=== PATIENT | male | born 1965 | race Hispanic/Latino ===

== ENCOUNTER 2017-05-21 14:18 | Emergency (ER) | payer MEDICARE ==
[2017-05-21 14:45] LABS: Basophils # (Auto) 0.1 K/mm3 (0.0-0.1); Basophils % (Auto) 0.7 % (0.0-1.8); Eosinophils % (Auto) 0.6 % (0.0-4.3); Hematocrit 49.4 % (35.5-45.6); Hemoglobin 16.7 gm/dl (11.8-15.2); Lymphocytes # (Auto) 3.3 K/mm3 (1.2-5.4); Lymphocytes % (Auto) 45.5 % (13.4-35.0); Mean Corpuscular HGB Conc 34 % (32-34); Mean Corpuscular Hemoglobin 32 pg (28-32); Mean Corpuscular Volume 94 fl (84-94); Monocytes # (Auto) 0.4 K/mm3 (0.0-0.8); Monocytes % (Auto) 4.9 % (0.0-7.3); Platelet Count 295 K/mm3 (140-440); Red Blood Count 5.24 M/mm3 (3.65-5.03); Red Cell Distribution Width 14.5 % (13.2-15.2)
[2017-05-21 15:09] LABS: BUN/Creatinine Ratio 4; Blood Urea Nitrogen 3 mg/dL (9-20); Calcium 9.8 mg/dL (8.4-10.2); Hemolysis Index 13
--- NOTE | 2017-05-21 15:42 | Emergency Department Report ---
ED Psych HPI - General Chief Complaint: Psych Stated Complaint: MENTAL HEALTH Time Seen by Provider: 05/21/17 14:47 Source: patient Mode of arrival: Ambulatory - History of Present Illness Initial Comments: Patient sent over by his regular doctor on a 1013 for evaluation of hearing voices telling him to harm himself and others patient is in process of getting medically cleared for psych placement. He presents awake alert oriented 3 denies ingestions has good airway complaints except a little bit of heartburn denied chest pain no headache no stiff neck no focal neural complaints chest pain no abdominal pain no fever MD Complaint: suicidal ideation, feels depressed -: unknown Associated Psychiatric Symptoms: suicidal ideation, homicidal ideation, racing thoughts, auditory hallucinations Quality: intermittent Treatments Prior to Arrival: placed on mental he - Related Data Allergies Allergy/AdvReac Type Severity Reaction Status Date / Time No Known Allergies Allergy Unverified 05/21/17 14:29 ED Review of Systems ROS: Stated complaint: MENTAL HEALTH Other details as noted in HPI Comment: All other systems reviewed and negative Constitutional: denies: diaphoresis, fever, malaise Eyes: denies: eye discharge, vision change ENT: denies: dental pain, hearing loss, epistaxis Respiratory: denies: orthopnea, shortness of breath, SOB with exertion, SOB at rest, stridor, wheezing Cardiovascular: denies: chest pain, palpitations, dyspnea on exertion, orthopnea , edema, syncope, paroxysmal nocturnal dyspnea Gastrointestinal: denies: abdominal pain, nausea, vomiting, diarrhea, constipation, hematemesis, melena, hematochezia Neurological: denies: headache, weakness, numbness, paresthesias, confusion, abnormal gait, vertigo Psychiatric: anxiety, depression, auditory hallucinations, homicidal thoughts, suicidal thoughts Hematological/Lymphatic: denies: easy bruising, swollen glands ED Past Medical Hx - Past Medical History Hx Hypertension: Yes Hx GERD: Yes Hx Psychiatric Treatment: Yes (SCHIZOPHRENIA) Additional medical history: ALCOHOL ABUSE/DRUG ABUSE - Social History Smoking Status: Current Every Day Smoker Substance Use Type: Alcohol ED Physical Exam - General Limitations: No Limitations General appearance: alert, in no apparent distress, anxious - Head Head exam: Present: atraumatic, normocephalic - Eye Eye exam: Present: normal appearance, PERRL, EOMI - ENT ENT exam: Present: normal exam, normal orophraynx - Neck Neck exam: Present: normal inspection. Absent: tenderness, meningismus - Respiratory Respiratory exam: Present: normal lung sounds bilaterally. Absent: respiratory distress, wheezes, rales, rhonchi, stridor, chest wall tenderness, accessory muscle use, decreased breath sounds, prolonged expiratory - Cardiovascular Cardiovascular Exam: Present: regular rate, normal rhythm, normal heart sounds. Absent: bradycardia, tachycardia, irregular rhythm - GI/Abdominal GI/Abdominal exam: Present: soft. Absent: distended, tenderness, guarding, rebound, rigid, mass, bruit, pulsatile mass - Rectal Rectal exam: Absent: black stool, bloody stool, fecal impaction, hemorrhoids, mass, tenderness - Extremities Exam Extremities exam: Present: normal inspection, normal capillary refill. Absent: tenderness, pedal edema, joint swelling, calf tenderness - Back Exam Back exam: Present: normal inspection. Absent: CVA tenderness (R), CVA tenderness (L), muscle spasm, paraspinal tenderness, vertebral tenderness - Neurological Exam Neurological exam: Present: alert, oriented X3, CN II-XII intact. Absent: motor sensory deficit - Psychiatric Psychiatric exam: Present: depressed, anxious, suicidal ideation - Skin Skin exam: Absent: cyanosis, diaphoretic, erythema, urticaria, vesicles, petechiae ED Course Vital Signs 05/21/17 14:25 Temperature 98.5 F Pulse Rate 108 H Respiratory 20 Rate Blood Pressure 116/78 O2 Sat by Pulse 98 Oximetry ED Medical Decision Making - Lab Data Result diagrams: 05/21/17 14:32 05/21/17 14:32 - EKG Data -: EKG Interpreted by Me EKG shows normal: sinus rhythm - EKG Data When compared to previous EKG there are: previous EKG unavailable Interpretation: other (no acute ischemic change) - Medical Decision Making Patient is medically cleared for psychiatric evaluation he was placed on 1013 for transfer for psychiatric inpatient evaluation for psychosis suicidal ideation and homicidal ideation Critical care attestation.: If time is entered above; I have spent that time in minutes in the direct care of this critically ill patient, excluding procedure time. ED Disposition Clinical Impression: Psychosis Disposition: [id number]/TX-65 PSY HOSP/PSY UNIT Is pt being admited?: No Condition: Stable Referrals: PRIMARY CARE, [Primary Care Provider] - 3-5 Days Time of Disposition: 17:01
[2017-05-21] MEDS ORDERED: ATIVAN IV ONE (15:45)
[2017-05-21] MEDS ORDERED: ALUM-MAG HYDROX-SIMETH 200-200-20MG/5ML PO ONE (15:45)
[2017-05-21 16:25] LABS: Bilirubin,Urine NEG (Negative); Blood,Urine NEG (Negative); Color,Urine Yellow (Yellow); Urobilinogen,Urine < 2.0 mg/dL (<2.0); WBC,Urine < 1.0 /HPF (0.0-6.0)
[2017-05-21 16:33] LABS: Amphetamine Screen,Urine PRESUMPTIVE NEGATIVE; Benzodiazepines Screen,Urine PRESUMPTIVE NEGATIVE; Cannabinoid Screen,Urine PRESUMPTIVE NEGATIVE; Cocaine Screen,Urine PRESUMPTIVE NEGATIVE; Methadone Screen,Urine PRESUMPTIVE NEGATIVE; Opiate Screen,Urine PRESUMPTIVE NEGATIVE
[2017-05-22 16:42] VITALS: BP 118/77
--- NOTE | 2017-05-22 16:52 | Consultation ---
History of Present Illness - Reason for Consult Consult date: 05/22/17 Reason for consult: Mental Health Evaluation Requesting physician: QUINTEN MAHER - Chief Complaint Chief complaint: "It's the voices" - History of Present Psychiatric Illness 51 y.o. white male presenting to the hospital because he is hearing voices. Today the patient is calm and cooperative during the assessment. He stated that the voices are telling him to kill himself. He stated that these voices also is telling him that everyone need to be "hurt." He could not explain why everyone need to be "hurt" when asked. Most of his answers to questions were delusional and not logical. He stated that he does not want to hurt himself, but the voices are "overwhelming." He denies SI/HI's and VH's. He denies erratic sleep and a poor appetite. He denies recreational drug use and alcohol consumption ( etoh). Medications and Allergies Allergies Allergy/AdvReac Type Severity Reaction Status Date / Time No Known Allergies Allergy Unverified 05/21/17 14:29 Past psychiatric history - Past Medical History Past Medical History: No medical history Past Surgical History: No surgical history - past Psychiatric treatment and history psychiatric treatment history: Multiple inpatient psy setting. Denies a fam psy hx. - Social History Social history: other (Reside at a personal assisted) Mental Status Exam - Vital signs Last Vital Signs Temp 97.6 F 05/22/17 08:15 Pulse 86 05/22/17 08:15 Resp 16 05/22/17 08:30 BP 118/77 05/22/17 08:15 Pulse Ox 99 05/22/17 08:30 - Exam Narrative exam: MSE: Appearance: calm, cooperative Behavior: good eye contact Speech: regular rate and tone Mood: "okay" Affect: congruent to mood Thought Process: circumstantial Thought Content: denies SI/HI's and VH's, disorganized, delusional Motor Activity: ambulatory Cognition: A/O x 3 Insight: poor Judgment: poor Results Result Diagrams: 05/21/17 14:32 05/21/17 14:32 All other labs normal. Assessment and Plan Assessment and plan: Impression: Unspecified Psychosis. Today the patient is calm and cooperative during the assessment. DDx: R/O Bipolar DO, Schizophrenia, R/O Schizophrenia Recommendation/Plan: Continue 1013 with placement to [place] today.
== END 2017-05-22 16:45 ==
LOC: ED 14:18
DX: F23 Brief psychotic disorder (principal); I10 Essential (primary) hypertension; K21.9 Gastro-esophageal reflux disease without esophagitis; F17.200 Nicotine dependence, unspecified, uncomplicated
CPT/HCPCS: 36415; 80048; 80307; 81001; 85025; 93005; 93010; 96374; 99283; G0480; J2060; 80320